=== PATIENT | male | born 1985 | race African-American/Black ===

== ENCOUNTER 2017-03-06 10:10 | Emergency (ER) | payer SELFPAY ==
[~2017-03-06] VITALS: Ht 167.6 cm; Wt 65.9 kg
[2017-03-06 10:24] VITALS: BP 114/69; PULSE 99; TEMP 100.1
== END 2017-03-06 11:04 | disposition home or self-care (01) ==
LOC: COL.ER 10:10
DX: Z03.89 Encounter for observation for other suspected diseases and conditions ruled out (principal)

== ENCOUNTER 2017-07-10 11:24 | Emergency (ER) | payer SELFPAY ==
[~2017-07-10] VITALS: Ht 165.1 cm; Wt 63.6 kg
[2017-07-10 11:26] VITALS: BP 113/67; TEMP 97.9
[2017-07-10 12:36] VITALS: PULSE 84
== END 2017-07-10 12:43 | disposition home or self-care (01) ==
LOC: COL.ER 11:24
DX: R51 Headache (principal); F17.210 Nicotine dependence, cigarettes, uncomplicated

== ENCOUNTER 2017-08-09 12:21 | Emergency (ER) | payer SELFPAY ==
[~2017-08-09] VITALS: Ht 165.1 cm; Wt 65.0 kg
[2017-08-09 12:24] VITALS: BP 113/58; PULSE 83; TEMP 98.3
== END 2017-08-09 12:49 | disposition home or self-care (01) ==
LOC: COL.ER 12:21
DX: Z00.00 Encounter for general adult medical examination without abnormal findings (principal)

== ENCOUNTER 2017-10-14 02:42 | Emergency (ER) | payer SELFPAY ==
[~2017-10-14] VITALS: Ht 167.6 cm; Wt 63.6 kg
[2017-10-14 02:43] VITALS: TEMP 97.8
[2017-10-14] MEDS ORDERED: FLEXERIL 1010 MG/TAB PO (03:27)
[2017-10-14] MEDS ORDERED: NORCO 325 MG-51 TAB PO (03:27)
[2017-10-14 04:14] VITALS: BP 114/76; PULSE 72
== END 2017-10-14 04:23 | disposition home or self-care (01) ==
LOC: COL.ER 02:42
DX: S33.9XXA Sprain of unspecified parts of lumbar spine and pelvis, initial encounter (principal); F17.290 Nicotine dependence, other tobacco product, uncomplicated; W09.8XXA Fall on or from other playground equipment, initial encounter
CPT/HCPCS: J1885; J2060; J3010